=== PATIENT | male | born 1950 | race African-American/Black ===

== ENCOUNTER 2016-07-18 22:10 | Emergency (ER) | payer OTHER ==
[~2016-07-18] VITALS: Ht 170.2 cm; Wt 90.0 kg
[~2016-07-18 22:10] MED LIST: ALBU8I INH; ASPI81TA82 PO; DUONI NEB; GABA300C3 PO; IPRAAER INH; LISI-360 PO; SERT-129 PO; SYMB160A INH; TRAZ100 PO; VIAG50TA PO; XANA0.5T PO; ZOCO40TA PO
[2016-07-18 22:12] VITALS: BP 133/77; PULSE 90; RESP 16; TEMP 98.6; O2SAT 96
--- NOTE | 2016-07-19 00:55 | PD ---
HPI Chief Complaint: Respiratory Symptoms Time Seen by Provider: 00:51 Travel History International Travel<30 days: No Contact w/Intl Traveler<30days: No Traveled to known affect area: No History of Present Illness HPI 65-year-old male with history of COPD here with shortness of breath. For the last 3 days patient has had increasing cough, chest congestion and wheezing. Some shortness of breath with exertion. He has been using his home Symbicort and albuterol with some improvement of his symptoms. No fevers or chills. Cough is primarily nonproductive albeit what he is not able to expectorate his sputum. PFSH Past Medical History Arthritis: Yes Asthma: No Autoimmune Disease: No Anxiety: Yes Depression: No Heart Rhythm Problems: No Cancer: No Cardiovascular Problems: Yes High Cholesterol: Yes Chemotherapy: No Chest Pain: No Congestive Heart Failure: No COPD: Yes Cerebrovascular Accident: Yes (HAS RESIDUAL LEFT FOOT WEAKNESS) Diabetes: No Diminished Hearing: No Endocrine: No GERD: No Genitourinary: No Hiatal Hernia: No Hypertension: Yes Immune Disorder: No Kidney Stones: No Musculoskeletal: Yes Neurologic: No Psychiatric: Yes Reproductive: No Respiratory: Yes Immunizations Current: Yes Migraines: No Radiation Therapy: No Renal Failure: No Seizures: No Sickle Cell Disease: No Thyroid Disease: No Ulcer: No Past Surgical History Abdominal Surgery: No AICD: No Arteriovenous Shunt: No Cardiac Surgery: No Ear Surgery: No Endocrine Surgery: No Eye Surgery: No Genitourinary Surgery: No Insulin Pump: No Joint Replacement: No Oral Surgery: No Pacemaker: No Thoracic Surgery: No Other Surgery: Yes (CIRCUMCISION) Social History Alcohol Use: No Tobacco Use: No (quit 2 years ago) Substance Use: No Allergies-Medications (Allergen,Severity, Reaction): Coded Allergies: No Known Allergies (Verified , 10/13/15) Reported Meds & Prescriptions Reported Meds & Active Scripts Active Reported Combivent Respimat Inh (Ipratropium-Albuterol Inh) 20-100 Group Home/Act Aero 1 Puff INH QID Symbicort Inh (Budesonide/Formoterol Fumarate) 160-4.5 Mcg/Act Aero 2 Puff INH Q12HR Duoneb (Ipratropium-Albuterol Neb) 0.5-2.5 Mg/3 Ml Neb 1 Nebule INH Q4HR NEB Ventolin Hfa 18 GM Inh (Albuterol Sulfate) 90 Mcg/Act Aer 2 Puff INH Q4H PRN Sertraline (Sertraline HCl) 50 Mg Tab 50 Mg PO DAILY Xanax (Alprazolam) 0.5 Mg Tab 0.5 Mg PO Q8H PRN Aspirin Low Dose (Aspirin) 81 Mg Chew 81 Mg CHEW DAILY Gabapentin 600 Mg Tab 600 Mg PO BID Lisinopril 10 Mg Tab 10 Mg PO DAILY Viagra (Sildenafil Citrate) 50 Mg Tab 50 Mg PO DAILY PRN Zocor (Simvastatin) 20 Mg Tab 20 Mg PO HS Review of Systems Except as stated in HPI: all other systems reviewed are Neg Physical Exam Narrative GENERAL: Well-appearing male in no acute distress SKIN: Focused skin assessment warm/dry. HEAD: Normocephalic. EYES: No scleral icterus. No injection or drainage. ENT: . Mucous membranes pink and moist. NECK: Supple CARDIOVASCULAR: Regular rate and rhythm. No murmur appreciated. RESPIRATORY: No accessory muscle use. Coarse wheezing and rhonchi GASTROINTESTINAL: Abdomen soft, non-tender, nondistended. MUSCULOSKELETAL: No obvious deformities. No edema. NEUROLOGICAL: Awake and alert. Motor grossly within normal limits. Normal speech. PSYCHIATRIC: Appropriate mood and affect; insight and judgment normal. Data Data Last Documented VS Vital Signs Date Time Temp Pulse Resp B/P Pulse Ox O2 Delivery O2 Flow Rate FiO2 07/19/16 01:02 96 Room Air 07/19/16 01:02 30 07/18/16 22:12 98.6 90 133/77 Orders Oximetry (07/19/16 00:53) Chest, Single Ap (07/19/16 00:53) Methylprednisolone So Succ Inj (Solumedr (07/19/16 01:00) Albuterol-Ipratropium Neb (Duoneb Neb) (07/19/16 01:00) MDM Medical Decision Making Medical Screen Exam Complete: Yes Emergency Medical Condition: Yes Medical Record Reviewed: Yes Differential Diagnosis 65-year-old male here with history COPD with 3 days of cough, chest congestion and wheezing. Differential includes COPD exacerbation, viral syndrome, pneumonia, bronchitis. Narrative Course Patient placed on monitor. Given 125 mg Solu-Medrol IM and DuoNeb 3. Portable chest x-ray obtained by my read shows no acute abnormalities. We'll discharge to home with symptomatic management steroids and antibiotics. Diagnosis Primary Impression: COPD exacerbation Referrals: Primary Care Physician as needed Additional Instructions: Antibiotics and steroids as prescribed. Continue home breathing treatments. Med/Other Pt SpecificInfo: Prescription(s) given Scripts Prednisone 50 Mg Tab50 Mg PO DAILY 5 Days Ref 0 Prov:Elizabeth Comer MD 07/19/16 Azithromycin (Zithromax Z-Kristofer)250 Mg [id number] Mg PO DIRECTED #1 DSPK Ref 0 500 MG (2 tabs) day 1, then 1 tab days 2-5. Prov:Elizabeth Comer MD 07/19/16 Disposition: 01 DISCHARGE HOME Condition: Stable Elizabeth Comer MD Jul 19, 2016 00:55
[2016-07-19] MEDS ORDERED: methylPREDNISolone SOD SUCC 125 MG/2 ML VIAL IM ONE (01:00)
[2016-07-19] MEDS ORDERED: VIAG50TA PO (01:01)
[2016-07-19] MEDS ORDERED: SERT-132 PO (01:01)
[2016-07-19] MEDS ORDERED: IPRAAER INH (01:01)
[2016-07-19] MEDS ORDERED: ZOCO20TA PO (01:01)
[2016-07-19] MEDS ORDERED: GABA600T PO (01:01)
[2016-07-19] MEDS ORDERED: SYMB160A INH (01:01)
[2016-07-19] MEDS ORDERED: IPRASOL INH (01:01)
[2016-07-19] MEDS ORDERED: LISI10TA3 PO (01:01)
[2016-07-19] MEDS ORDERED: VENTAER INH (01:01)
[2016-07-19] MEDS ORDERED: ALPR.5 PO (01:01)
[2016-07-19] MEDS ORDERED: ASPI81CH37 CHEW (01:01)
[2016-07-19 01:02] VITALS: O2SAT 96
[2016-07-19] MEDS: RESP: ALBUTEROL 2.5 MG/IPRATROPIUM 0.5 MG NEB (SCH) INH (01:08)
--- NOTE | 2016-07-19 01:20 | RADRPT ---
EXAM DATE/TIME: 07/19/2016 00:50 [facility] COMPARISON: CHEST SINGLE AP, October 23, 2012, 15:20. INDICATIONS : Shortness of breath and cough. MEDICAL HISTORY : None. SURGICAL HISTORY : None. ENCOUNTER: Initial ACUITY: 1 day PAIN SCORE: 0/10 LOCATION: Bilateral chest FINDINGS: A single view of the chest demonstrates the lungs to be symmetrically aerated without evidence of mas s, infiltrate or effusion. The cardiomediastinal contours are unremarkable. Osseous structures are intact. A scoliotic and degenerative spine. CONCLUSION: No acute disease. Junito Rodriguez Jr., MD on July 19, 2016 at 1:18 Board Certified Radiologist. This report was verified electronically.
[2016-07-19] MEDS ORDERED: ZITHTAB PO (01:29)
[2016-07-19] MEDS ORDERED: PRED50 PO (01:29)
[2016-07-19 01:33] VITALS: BP 130/74; PULSE 88; RESP 24
== END 2016-07-19 01:54 | disposition home or self-care (01) ==
LOC: NEPE 22:10
DX: J44.1 Chronic obstructive pulmonary disease with (acute) exacerbation (principal); I10 Essential (primary) hypertension; E78.00 Pure hypercholesterolemia, unspecified; Z87.39 Personal history of other diseases of the musculoskeletal system and connective tissue; Z86.59 Personal history of other mental and behavioral disorders; Z86.79 Personal history of other diseases of the circulatory system; Z87.09 Personal history of other diseases of the respiratory system; Z87.891 Personal history of nicotine dependence
CPT/HCPCS: 71010; 94640; 94664; 96372; 99283; J2930

== ENCOUNTER 2017-03-12 19:09 | Emergency (ER) | payer OTHER ==
[~2017-03-12] VITALS: Ht 167.6 cm; Wt 95.0 kg
[~2017-03-12 19:09] MED LIST changes: -ALBU8I INH; +ALPR.5 PO; +ASPI81CH6 CHEW; -ASPI81TA82 PO; -DUONI NEB; -GABA300C3 PO; +GABA600T PO; +IPRASOL INH; -LISI-360 PO; +LISI10TA3 PO; +PRED50 PO; -SERT-129 PO; +SERT-132 PO; -TRAZ100 PO; +VENTAER INH; -XANA0.5T PO; +ZITHTAB PO; +ZOCO20TA PO; -ZOCO40TA PO
[2017-03-12 19:11] VITALS: BP 152/72; PULSE 98; RESP 20; TEMP 98.7; O2SAT 97
[2017-03-12] MEDS ORDERED: OMEP10CA PO (19:36)
[2017-03-12] MEDS ORDERED: predniSONE 20 MG TAB PO ONE (20:00)
[2017-03-12] MEDS ORDERED: SODIUM CHLORIDE 0.9% FLUSH 10 ML FLUSH IVF PRN (20:00)
[2017-03-12] MEDS ORDERED: RESP: ALBUTEROL 2.5 MG/IPRATROPIUM 0.5 MG NEB (SCH) NEB ONE (20:00)
--- NOTE | 2017-03-12 20:01 | PD ---
HPI Chief Complaint: Respiratory Symptoms Time Seen by Provider: 19:30 Travel History International Travel<30 days: No Contact w/Intl Traveler<30days: No Traveled to known affect area: No History of Present Illness HPI 66 yo m presenting to the ED with a cc of 3 day history of increasing SOB. He states that he has noticed increasing cough (dry) and SOB with reduced activity. He has a long history of COPD due to 30 pack year smoking history for which he quit 3 years ago. He believes that this feels like all of his previous exacerbations. He has no recent travel or sick contacts. NO CP, palpitations, peripheral edema. No N/V/D. No fevers or chills. Patient states that very early COPD exacerbation is here to stem it off. States fairly mild currently. PFSH Past Medical History Arthritis: Yes Asthma: No Autoimmune Disease: No Anxiety: Yes Depression: No Heart Rhythm Problems: No Cancer: No Cardiovascular Problems: Yes (HTN) High Cholesterol: Yes Chemotherapy: No Chest Pain: No Congestive Heart Failure: No COPD: Yes Cerebrovascular Accident: Yes Diabetes: No Diminished Hearing: No Endocrine: No GERD: No Genitourinary: No Hiatal Hernia: No Hypertension: Yes Immune Disorder: No Kidney Stones: No Musculoskeletal: Yes Neurologic: No Psychiatric: Yes Reproductive: No Respiratory: Yes (COPD) Immunizations Current: Yes Migraines: No Radiation Therapy: No Renal Failure: No Seizures: No Sickle Cell Disease: No Thyroid Disease: No Ulcer: No Past Surgical History Abdominal Surgery: No AICD: No Arteriovenous Shunt: No Cardiac Surgery: No Ear Surgery: No Endocrine Surgery: No Eye Surgery: No Genitourinary Surgery: No Insulin Pump: No Joint Replacement: No Oral Surgery: No Pacemaker: No Thoracic Surgery: No Other Surgery: Yes (CIRCUMCISION) Social History Alcohol Use: No Tobacco Use: No Substance Use: No Allergies-Medications (Allergen,Severity, Reaction): Coded Allergies: No Known Allergies (Verified Adverse Reaction, Unknown, 03/12/17) Reported Meds & Prescriptions Reported Meds & Active Scripts Active Azithromycin 250 Mg Tab 250 Mg PO DIRECTED Take 2 tabs (500 mg) on day 1 then 1 tab daily x 4 days. Prednisone 20 Mg Tab 60 Mg PO ONCE 5 Days Reported Omeprazole 10 Mg Cap 10 Mg PO DAILY Combivent Respimat Inh (Ipratropium-Albuterol Inh) 20-100 Fdc/Act Aero 1 Puff INH QID Symbicort Inh (Budesonide/Formoterol Fumarate) 160-4.5 Mcg/Act Aero 2 Puff INH Q12HR Duoneb (Ipratropium-Albuterol Neb) 0.5-2.5 Mg/3 Ml Neb 1 Nebule INH Q4HR NEB Ventolin Hfa 18 GM Inh (Albuterol Sulfate) 90 Mcg/Act Aer 2 Puff INH Q4H PRN Sertraline (Sertraline HCl) 50 Mg Tab 50 Mg PO DAILY Xanax (Alprazolam) 0.5 Mg Tab 0.5 Mg PO Q8H PRN Aspirin Low Dose (Aspirin) 81 Mg Chew 81 Mg CHEW DAILY Gabapentin 600 Mg Tab 600 Mg PO BID Lisinopril 10 Mg Tab 10 Mg PO DAILY Viagra (Sildenafil Citrate) 50 Mg Tab 50 Mg PO DAILY PRN Zocor (Simvastatin) 20 Mg Tab 20 Mg PO HS Review of Systems Except as stated in HPI: all other systems reviewed are Neg Physical Exam Narrative GENERAL: patient is laying in bed comfortably SKIN: Warm and dry. HEAD: Atraumatic. Normocephalic. EYES: Pupils equal and round. No scleral icterus. No injection or drainage. ENT: No nasal bleeding or discharge. Mucous membranes pink and moist. NECK: Trachea midline. No JVD. CARDIOVASCULAR: Regular rate and rhythm. no murmurs RESPIRATORY: No accessory muscle use. Bilateral expiratory wheezing. Rhonchi bilaterally R>L. normal work of breathing, speaking in full sentences. GASTROINTESTINAL: Abdomen soft, non-tender, nondistended. Hepatic and splenic margins not palpable. MUSCULOSKELETAL: Extremities without clubbing, cyanosis, or edema. No obvious deformities. NEUROLOGICAL: Awake and alert. No obvious cranial nerve deficits. Motor grossly within normal limits. Five out of 5 muscle strength in the arms and legs. Normal speech. PSYCHIATRIC: Appropriate mood and affect; insight and judgment normal. Data Data Last Documented VS Vital Signs Date Time Temp Pulse Resp B/P (MAP) Pulse Ox O2 Delivery O2 Flow Rate FiO2 03/12/17 21:22 03/12/17 19:37 83 24 97 03/12/17 19:11 98.7 Room Air Orders Orders Chest, Pa & Lat (03/12/17 ) Basic Metabolic Panel (Bmp) (03/12/17 20:00) Complete Blood Count With Diff (03/12/17 20:00) Magnesium (Mg) (03/12/17 20:00) Ecg Monitoring (03/12/17 20:00) Iv Access Insert/Monitor (03/12/17 20:00) Oximetry (03/12/17 20:00) Oxygen Administration (03/12/17 20:00) Sodium Chloride 0.9% Flush (Ns Flush) (03/12/17 20:00) Prednisone (Deltasone) (03/12/17 20:00) Albuterol-Ipratropium Neb (Duoneb Neb) (03/12/17 20:00) Ed Discharge Order (03/12/17 21:12) Labs Laboratory Tests Test 03/12/17 20:15 White Blood Count 8.2 TH/MM3 Red Blood Count 3.99 MIL/MM3 Hemoglobin 12.8 GM/DL Hematocrit 37.9 % Mean Corpuscular Volume 95.0 FL Mean Corpuscular Hemoglobin 32.0 PG Mean Corpuscular Hemoglobin Concent 33.7 % Red Cell Distribution Width 14.5 % Platelet Count 226 TH/MM3 Mean Platelet Volume 8.3 FL Neutrophils (%) (Auto) 62.1 % Lymphocytes (%) (Auto) 22.5 % Monocytes (%) (Auto) 8.2 % Eosinophils (%) (Auto) 6.6 % Basophils (%) (Auto) 0.6 % Neutrophils # (Auto) 5.1 TH/MM3 Lymphocytes # (Auto) 1.9 TH/MM3 Monocytes # (Auto) 0.7 TH/MM3 Eosinophils # (Auto) 0.5 TH/MM3 Basophils # (Auto) 0.1 TH/MM3 CBC Comment DIFF FINAL Differential Comment Blood Urea Nitrogen 12 MG/DL Creatinine 1.41 MG/DL Random Glucose 143 MG/DL Calcium Level 8.6 MG/DL Magnesium Level 1.8 MG/DL Sodium Level 136 MEQ/L Potassium Level 4.0 MEQ/L Chloride Level 104 MEQ/L Carbon Dioxide Level 21.4 MEQ/L Anion Gap 11 MEQ/L Estimat Glomerular Filtration Rate 61 ML/MIN [facility] Medical Decision Making Medical Screen Exam Complete: Yes Emergency Medical Condition: Yes Differential Diagnosis COPD exacerbation, Bronchitis, Pneumonia, Hypertension Narrative Course CBC, BMP, CXR, DuoNebs. Patient roomed in emergency department, he appears well in no distress, vital signs including oxygen saturation normal. Normal breathing. Given a breathing treatment at his request. Chest x-ray was within normal limits. At this time there is no indication further workup is stable for discharge. Prednisone burst course ordered, discussed symptomatic management returned ED criteria as well as follow-up with his primary care physician. Diagnosis Primary Impression: COPD exacerbation Med/Other Pt SpecificInfo: Prescription(s) given Scripts Azithromycin (Azithromycin) 250 Mg Tab 250 MG PO DIRECTED for Infection, #6 TAB 0 Refills Take 2 tabs (500 mg) on day 1 then 1 tab daily x 4 days. Prov: Kolton Lara MD 03/12/17 Prednisone (Prednisone) 20 Mg Tab 60 MG PO ONCE for 5 Days, #1 TAB 0 Refills Prov: Kolton Lara MD 03/12/17 Disposition: 01 DISCHARGE HOME Condition: Stable Kolton Lara MD Mar 12, 2017 20:01
[2017-03-12 20:24] LABS: AUTOMATED NEUTROPHIL # 5.1 TH/MM3 (1.8-7.7); BASOPHIL # 0.1 TH/MM3 (0-0.2); BASOPHIL % 0.6 % (0.0-2.0); EOSINOPHIL # 0.5 TH/MM3 (0-0.4); EOSINOPHIL % 6.6 % (0.0-4.0); HEMATOCRIT 37.9 % (39.0-51.0); HEMO FLAGS DIFF FINAL; LYMPH % 22.5 % (9.0-44.0); LYMPHOCYTE # 1.9 TH/MM3 (1.0-4.8); MEAN CORPUSCULAR HGB CONC 33.7 % (32.0-36.0); MONO % 8.2 % (0.0-8.0); NEUT % 62.1 % (16.0-70.0); PLATELET COUNT 226 TH/MM3 (150-450); RED BLOOD COUNT 3.99 MIL/MM3 (4.50-5.90); RED CELL DISTRIBUTION WIDTH 14.5 % (11.6-17.2); WHITE BLOOD COUNT 8.2 TH/MM3 (4.0-11.0)
[2017-03-12 20:45] LABS: BICARBONATE 21.4 MEQ/L (21.0-32.0); MAGNESIUM 1.8 MG/DL (1.5-2.5)
--- NOTE | 2017-03-12 21:02 | RADRPT ---
EXAM DATE/TIME: 03/12/2017 20:37 [facility] COMPARISON: CHEST PA & LAT, August 10, 2014, 12:00. INDICATIONS : Chest pain and shortness of breath. MEDICAL HISTORY : Chronic obstructive pulmonary disease. Hypertension Hypercholesterolemia. SURGICAL HISTORY : None. ENCOUNTER: Initial ACUITY: 3 days PAIN SCORE: 5/10 LOCATION: Bilateral chest FINDINGS: PA and lateral views of the chest demonstrate the lungs to be symmetrically aerated without evidence of mass, infiltrate or effusion. No evidence of pneumothorax. The heart is normal size. Mild tortuo sity descending thoracic aorta.. Osseous structures are intact. CONCLUSION: The lungs are clear. Junito Martínez MD on March 12, 2017 at 21:00 Board Certified Radiologist. This report was verified electronically.
[2017-03-12] MEDS ORDERED: AZIT250T3 PO (21:11)
[2017-03-12] MEDS ORDERED: PRED20 PO (21:11)
== END 2017-03-12 21:24 | disposition home or self-care (01) ==
LOC: NEPE 19:09
DX: J44.1 Chronic obstructive pulmonary disease with (acute) exacerbation (principal); I10 Essential (primary) hypertension; Z79.899 Other long term (current) drug therapy
CPT/HCPCS: 71020; 80048; 83735; 85025; 94664; 99284; J7512